=== PATIENT | female | born 1970 | race Caucasian/White ===

== ENCOUNTER → 2019-01-25 | Outpatient (CLI) | payer OTHER ==
--- NOTE | 2019-01-25 16:21 | RAD ---
Examination: VENOUS LOWER EXTREMITY RIGHT History: Right calf pain Comparison/Correlation: None FINDINGS: Right lower extremity duplex venous ultrasound exam was performed. Grayscale, color Doppler, and spectral Doppler imaging was performed. Compression and augmentation was performed. The right common femoral vein, superficial femoral vein, popliteal vein, and greater saphenous vein are normal with no evidence of deep venous thrombus. Visualized right calf veins are unremarkable. Normal compressibility and augmentation is evident. IMPRESSION: Normal right lower extremity duplex ultrasound exam. No evidence of deep venous thrombus involving the right lower extremity. Electronically signed by: Jose Sprague MD (01/25/2019 4:18 PM) [facility]
== END | disposition home or self-care (01) ==
LOC: US 15:03
PROVIDERS: ATTEND Preventive Medicine Occupational Medicine
DX: M79.661 Pain in right lower leg (principal)
CPT/HCPCS: 93971